=== PATIENT | female | born 1960 | race Caucasian/White ===

== ENCOUNTER 2017-02-02 09:14 | Observation (INO) | payer OTHER ==
[~2017-02-02] VITALS: Ht 157.5 cm; Wt 77.1 kg
[2017-02-02 10:01] LABS: HEMATOCRIT 35.7 % (36.0-46.0); MCH 29.4 PG (29.0-34.0); MCHC 32.5 G/DL (30.0-36.0); MCV 90.4 FL (83-99); MEAN PLAT.VOLUME 9.6 uM^3 (9.5-12.4); PLATELET COUNT 285 K/uL (156-360); RBC DIS.WIDTH-CV 12.3 % (11.8-14.6); RBC DIS.WIDTH-SD 40.4 % (39-53); RED BLOOD COUNT 3.95 M/uL (3.80-5.20)
[2017-02-02 10:13] LABS: CHLORIDE 106 mEq/L (99-109); POTASSIUM 4.2 mEq/L (3.7-5.4); SODIUM 140 mEq/L (136-147)
[2017-02-02 10:15] LABS: GLUCOSE 103 mg/dL (70-99)
[2017-02-02 10:16] LABS: ANION GAP 9 MEQ/L (2-14)
[2017-02-02 10:19] LABS: GFR ESTIMATE (CALCULATED) > 59 mL/min/; UREA NITROGEN (BUN) 9 mg/dL (9-23)
[2017-02-02 10:22] LABS: TROP-I INTERPRETATION NEGATIVE; TROPONIN-I < 0.01 ng/mL (0.0-0.30)
[2017-02-02] MEDS ORDERED: FERROUS SULFAT325 MG PO (13:53)
[2017-02-02] MEDS ORDERED: EXCEDRIN EXTRA1 EACH PO (13:54)
[2017-02-02] MEDS ORDERED: VITAMIN B12 100MCG PO (13:54)
[2017-02-02] MEDS ORDERED: IBUPROFEN200 M1 PO (13:54)
[2017-02-02 15:46] VITALS: BP 130/77
[2017-02-02 16:51] LABS: TROP-I INTERPRETATION NEGATIVE; TROPONIN-I < 0.01 ng/mL (0.0-0.30)
[2017-02-02 20:30] VITALS: BP 133/70
[2017-02-02] MEDS ORDERED: LOPRESSOR25 MG PO (21:47)
[2017-02-02 22:03] LABS: TROP-I INTERPRETATION NEGATIVE; TROPONIN-I < 0.01 ng/mL (0.0-0.30)
[2017-02-02] MEDS ORDERED: ASPIR-LOW81 MG PO (22:20)
[2017-02-02 22:32] LABS: METH RESISTANT S AUREUS PCR POSITIVE (NEGATIVE)
[2017-02-02 23:00] LABS: PROBE CHECK PASS
== END 2017-02-02 22:40 | disposition home or self-care (01) ==
LOC: EME 09:14 → 5WEST 11:19 → EDOF 11:19 → 5WEST 12:16
PROVIDERS: Nurse Practitioner Family; Physician Assistant
DX: R07.9 Chest pain, unspecified (principal); F41.9 Anxiety disorder, unspecified; I10 Essential (primary) hypertension; F43.9 Reaction to severe stress, unspecified; G25.0 Essential tremor; Z79.82 Long term (current) use of aspirin; Z82.49 Family history of ischemic heart disease and other diseases of the circulatory system; Z82.5 Family history of asthma and other chronic lower respiratory diseases; Z80.1 Family history of malignant neoplasm of trachea, bronchus and lung
CPT/HCPCS: 71020; 80048; 84484; 85027; 87641; 93005; G0378